=== PATIENT | male | born 1985 | race Caucasian/White ===

== ENCOUNTER 2022-07-16 14:52 | Outpatient (REF) | payer OTHER, SELFPAY ==
--- NOTE | ~2022-07-16 | MR_ITS ---
EXAMINATION: MR KNEE WITHOUT CONTRAST, LEFT CLINICAL INFORMATION: Work injury on 06/04/2022. Superior knee pain. Intermittent burning sensation. Instability. COMPARISON: None TECHNIQUE: MRI of the knee without contrast was performed using routine sequences on a high-field scanner. FINDINGS: MENISCI: Medial Meniscus: Intact Lateral Meniscus: Intact LIGAMENTS: Cruciate: Intact Collateral: Intact EXTENSOR MECHANISM: Intact quadriceps and patellar tendons. Normal patellofemoral alignment. No evidence of patellofemoral injury. 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 ARTICULAR CARTILAGE/BONE: Patellofemoral Compartment: Normal Medial Compartment: Normal Lateral Compartment: Normal JOINT FLUID AND BURSAE: Normal MR/MR knee LT wo con IMPRESSION: 1. No acute meniscal or ligamentous injury. 2. 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 No evidence of acute injury.
== END 2022-07-16 14:53 | disposition home or self-care (01) ==
LOC: HO.MRI 14:52
PROVIDERS: Visit Provider Internal Medicine
DX: M25.362 Other instability, left knee (principal)
CPT/HCPCS: 73721

== ENCOUNTER 2022-08-24 09:41 | Outpatient (REF) | payer OTHER, SELFPAY | END 2022-08-24 09:42 | disposition home or self-care (01) | LOC: HO.HOSX 09:41 | PROVIDERS: Visit Provider Physician Assistant | DX: Z13.89 Encounter for screening for other disorder (principal) ==

== ENCOUNTER 2023-06-29 03:38 | Emergency (ER) | payer OTHER, SELFPAY ==
--- NOTE | ~2023-06-29 | XR_ITS ---
EXAMINATION: XR CHEST CLINICAL INFORMATION: Cough. Palpitations. COMPARISON: 10/30/2008. TECHNIQUE: Frontal view of the chest was obtained. FINDINGS: No significant abnormality is noted involving the heart, lungs, mediastinum, bony thorax or soft tissues. XR/XR chest 1V IMPRESSION: Unremarkable examination.
[2023-06-29 04:06] VITALS: BP 126/83; PULSE 108; RESP 16; TEMP 37.7; O2SAT 99; BMI 26.3
--- NOTE | 2023-06-29 04:13 | ECG_ITS ---
Test Reason : TACHYCARDIA Blood Pressure : / mmHG Vent. Rate : 106 BPM Atrial Rate : 106 BPM P-R Int : 146 ms QRS Dur : 082 ms QT Int : 316 ms P-R-T Axes : 057 070 048 degrees QTc Int : 419 ms Sinus tachycardia Otherwise normal ECG When compared with ECG of 07-JAN-2007 04:12, Vent. rate has increased BY 36 BPM Referred By: Generic ED Physician Electronically Signed By:TELLO ALVARES
[2023-06-29 04:54] LABS: Basophils Percent Auto 0.4 % (0-2); Eosinophils Percent Auto 0.5 % (0-4); Hematocrit 41.4 % (42.0-52.0); Hemoglobin 14.4 g/dl (14.0-18.0); Imm Gran Abs Auto 0.03 X10*3/uL (0.00-0.03); Imm Gran Pct Auto 0.4 % (0.0-0.4); Lymphocytes Absolute Auto 1.1 X10*3/uL (1.2-4.9); Lymphocytes Percent Auto 13.9 % (20-40); MANUAL DIFF FLAG NO; Mean Corpuscular HGB Conc 34.8 g/dl (31.0-36.0); Mean Corpuscular Hemoglobin 30.9 pg (27.0-33.0); Mean Corpuscular Volume 88.8 fL (80.0-98.0); Mean Platelet Volume 8.7 fL (9.4-12.4); Monocytes Absolute Auto 0.6 X10*3/uL (0.1-1.2); Monocytes Percent Auto 7.3 % (2-11); Neutrophils Absolute Auto 5.9 x10*3/uL (2.0-8.3); Neutrophils Percent Auto 77.5 % (45-73); Platelet Count 191 X10*3/uL (160-400); Red Blood Count 4.66 X10*6/uL (4.60-5.80); Red Cell Distribution Width 13.2 % (11.0-16.0); White Blood Count 7.7 X10*3/uL (4.8-10.8)
[2023-06-29 05:13] LABS: Alanine Aminotransferase 33 U/L (0-40); Albumin Level 4.5 g/dL (3.5-5.0); Alkaline Phosphatase 60 U/L (39-117); Anion Gap 12 (12-20); Aspartate Amino Transferase 25 U/L (5-37); Bilirubin Total 0.5 mg/dL (0.0-1.0); Blood Urea Nitrogen 18 mg/dL (9-16); Calcium 9.5 mg/dL (8.4-10.2); Carbon Dioxide 26 mmol/L (22-29); Chloride 106 mmol/L (96-108); Creatinine Clr Calc Pharmacy 100.5; Estimated Glomerular Filt Rate > 60; Glucose Random 109 mg/dL (60-115); Potassium 3.9 mmol/L (3.3-5.1); Sodium 140 mmol/L (135-145); Total Protein 7.6 g/dL (6.5-8.0)
[2023-06-29 05:14] VITALS: BP 115/78; PULSE 100; RESP 21; TEMP 37.3; O2SAT 99
[2023-06-29 05:19] LABS: Troponin-I High Sensitivity < 2.7 ng/L (<3.5-35.0)
[2023-06-29 05:31] LABS: Influenza A PCR NEGATIVE (Negative); Influenza B PCR NEGATIVE (Negative); Resp Syncy Virus RNA Qual PCR NEGATIVE (Negative); SARS COV2 PCR INHOUSE POSITIVE (Negative)
--- NOTE | 2023-06-29 06:29 | ED.GENADULT ---
HPI - General Adult General Chief complaint: General Medical Stated complaint: elevated heart rate Time Seen by Provider: 06/29/23 06:29 Source: patient and family Mode of arrival: ambulatory History of Present Illness HPI narrative: 38-year-old male who presents with concerns for tachycardia but states that he has been having a headache and scratchy throat with a dry cough since yesterday. He otherwise denies any chest pain/nausea/dizziness/lightheadedness. Related Data Previous Rx's Medication Instructions Recorded betamethasone, augmented 0.05 % 1 applic topical BID PRN allergic 05/23/20 topical cream reaction #50 grams prednisone 10 mg tablet 10 mg PO .COMPLEX #45 tabs 05/23/20 cephalexin 500 mg capsule (Keflex) 500 mg PO TID 7 days #21 caps 06/23/20 terbinafine HCl 250 mg tablet 250 mg PO DAILY 2 weeks #14 tabs 06/23/20 Allergies Allergy/AdvReac Type Severity Reaction Status Date / Time No Known Allergies Allergy Verified 06/29/23 04:05 [No Known Allergies*] Review of Systems Review of Systems: Pertinent positives and negatives as stated in [facility] Past Medical History Source: nursing notes reviewed Social History Social History Alcohol intake: former Smoked in Last 30 Days: No Use of substances other than those prescribed or required for medical reasons: No Advance Directives: No Advance Directives Information Provided: No Physical Exam ED Vital Signs: Vital Signs - 24 hr 06/29/23 04:06 06/29/23 05:14 Temperature 99.9 F 99.2 F Pulse Rate 108 H 100 Respiratory Rate 16 21 H Blood Pressure 126/83 115/78 Pulse Oximetry 99 99 Oxygen Delivery Method Room Air Room Air BMI result Body Mass Index 26.3 VITAL SIGNS: Reviewed. GENERAL: Well developed, well nourished, in no acute distress. HEAD: Normocephalic/atraumatic EYES: PERRLA, EOMI EARS: Ext canals without abnormality, TMs non-bulging and non-erythematous NOSE: Nares patent bilateral OROPHARYNX: no oral lesions noted, posterior pharynx clear and non-erythematous without noted tonsillar enlargement/erythema/exudates NECK: Supple, no adenopathy LUNGS: Normal breath sounds. No adventitious sounds or accessory muscle use. SpO2<99> CARDIOVASCULAR: Regular rate and rhythm without noted murmurs ABDOMEN: Soft, non-tender, non-distended with bowel sounds. MUSCULOSKELETAL: No tenderness, deformities, or effusions noted on gross inspection. EXTREMITIES: No cyanosis, clubbing or edema. SKIN: Inspection of the skin reveals no rashes NEUROLOGIC: Alert and oriented x 4. Strength and sensation to light touch were grossly intact x 4. Medical Decision Making Medical Decision Making [facility] Narrative: 38-year-old male with history and clinical presentation, DDX: Viral syndrome, dehydration you, febrile I reviewed all investigations and hematologic indices negative for leukocytosis, there is no anemia or thrombocytopenia. Chemistry indices are grossly within normal limits without RICHARD her electrolyte/liver enzyme derangements. High sensitivity troponin is undetectable. Viral testing is noted be positive for COVID-19. Chest x-ray is negative for infiltrative venous congestion otherwise my interpretation is in agreement with radiology's impression. All results and findings discussed with patient at bedside, I suspect that residual tachycardia is secondary to elevated temperature. Patient received combination antipyretics prior to discharge. Differential Diagnosis Differential Diagnoses: The differential diagnosis associated with the presentation includes Please see the discussion above Admission/Observation Consideration of admission/observation: Escalation of care including admission/observation considered Please see the discussion above Lab Data [facility] Lab Attestation statement: I reviewed the patient's lab results. Please see the discussion above 06/29/23 04:49 06/29/23 04:48 Labs: Lab Results 06/29/23 06/29/23 Range/Units 04:48 04:49 WBC 7.7 (4.8-10.8) X10*3/uL RBC 4.66 (4.60-5.80) X10*6/uL Hgb 14.4 (14.0-18.0) g/dl Hct 41.4 L (42.0-52.0) % MCV 88.8 (80.0-98.0) fL MCH 30.9 (27.0-33.0) pg MCHC 34.8 (31.0-36.0) g/dl RDW 13.2 (11.0-16.0) % Plt Count 191 (160-400) X10*3/uL MPV 8.7 L (9.4-12.4) fL Immature Gran % (Auto) 0.4 (0.0-0.4) % Neut % (Auto) 77.5 H (45-73) % Lymph % (Auto) 13.9 L (20-40) % [place] % (Auto) 7.3 (2-11) % Eos % (Auto) 0.5 (0-4) % Baso % (Auto) 0.4 (0-2) % Lymph # (Auto) 1.1 L (1.2-4.9) X10*3/uL [place] # (Auto) 0.6 (0.1-1.2) X10*3/uL Eos # (Auto) 0.0 (0.0-0.4) X10*3/uL Baso # (Auto) 0.0 (0.0-0.2) X10*3/uL Abs Immat Gran (auto) 0.03 (0.00-0.03) X10*3/uL Absolute Neuts (auto) 5.9 (2.0-8.3) x10*3/uL Absolute Nucleated RBC 0.000 (0.0-0.012) X10*3/uL Nucleated RBC % (auto) 0.0 (0.0-0.2) /100WBC Sodium 140 (135-145) mmol/L Potassium 3.9 (3.3-5.1) mmol/L Chloride 106 (96-108) mmol/L Carbon Dioxide 26 (22-29) mmol/L Anion Gap 12 (12-20) BUN 18 H (9-16) mg/dL Creatinine 1.05 (0.5-1.4) mg/dL Estim Creat Clear Calc 100.5 Estimated GFR > 60 Random Glucose 109 (60-115) mg/dL Calcium 9.5 (8.4-10.2) mg/dL Total Bilirubin 0.5 (0.0-1.0) mg/dL AST 25 (5-37) U/L ALT 33 (0-40) U/L Alkaline Phosphatase 60 (39-117) U/L Troponin I High Sens < 2.7 (<3.5-35.0) ng/L Total Protein 7.6 (6.5-8.0) g/dL Albumin 4.5 (3.5-5.0) g/dL Influenza Type A (PCR) NEGATIVE (Negative) Influenza Type B (PCR) NEGATIVE (Negative) RSV RNA Qual (PCR) NEGATIVE (Negative) SARS-CoV-2 RNA (RT-PCR) POSITIVE A (Negative) Independent Interpretation I performed an independent interpretation of an: EKG Interpretation: Tachycardia, HR-106, no STEMI, DE/QRS/QTC is within normal limits. Radiology Impression Discussion of test interpretation with radiology: I have reviewed the radiologist's reading. Radiologist Impression: Please see the discussion above Discharge Plan Discharge Clinical Impression: Viral syndrome, Lab test positive for detection of COVID-19 virus Patient Disposition: Home, Self-Care Instructions: Viral Syndrome (ED), COVID-19 (Coronavirus Disease 2019) (ED) Additional Instructions: 1. Must isolate for the next 4 days and then follow all youremployer's guidelines for return to work. 2. Recommend rest, hydration, and [id number] Tylenol/ibuprofen for body aches, fevers/chills. Return to the ER for any worsening symptoms. Prescriptions: No Action prednisone 10 mg tablet 10 mg PO .COMPLEX Qty: 45 0RF Rx Instructions: 5 tabs daily for 3 days, 4 tabs daily for 3 days, 3 tabs daily for 3 days, 2 tabs daily for 3 days, 1 tab daily for 3 days betamethasone, augmented 0.05 % cream 1 applic topical BID PRN (Reason: allergic reaction) Qty: 50 1RF terbinafine HCl 250 mg tablet 250 mg PO DAILY 14 Days Qty: 14 0RF cephalexin [Keflex] 500 mg capsule 500 mg PO TID 7 Days Qty: 21 0RF Referrals: Spencer Roger MD [Primary Care Provider] - Stand Alone Forms: Work/School Release
[2023-06-29 07:03] VITALS: BP 115/70; PULSE 98; RESP 19; TEMP 38.2; O2SAT 97
[2023-06-29] MEDS: Ibuprofen 400 MG TABLET PO (07:05)
[2023-06-29] MEDS: Acetaminophen 325 MG TABLET 975 MG PO (07:06)
== END 2023-06-29 07:50 | disposition home or self-care (01) ==
PROVIDERS: Emergency Provider Student in an Organized Health Care Education/Training Program; PCP Internal Medicine
DX: U07.1 COVID-19 (principal); B34.9 Viral infection, unspecified
CPT/HCPCS: 0241U; 71045; 80053; 84484; 85025; 93005; 99283; 99284

== ENCOUNTER → 2023-06-29 04:13 | Outpatient (BNV) | payer OTHER, SELFPAY | PROVIDERS: Emergency Provider Student in an Organized Health Care Education/Training Program; PCP Internal Medicine; Visit Provider Internal Medicine | DX: R00.0 Tachycardia, unspecified (principal) | CPT/HCPCS: 93010 ==